=== PATIENT | female | born 1955 | race Caucasian/White ===

== ENCOUNTER 2018-11-21 14:52 | Outpatient (CLI) | payer OTHER, SELFPAY ==
[2018-11-21 15:34] LABS: Bilirubin Negative (Negative); Blood Negative (Negative); Clarity Clear; Glucose Negative (Negative); Ketones Negative (Negative); Leukocyte Esterase Trace (Negative); Nitrite Negative (Negative); Urobilinogen 0.2 EU/dL (Up TO 0.2); pH 6.5 (5-8)
[2018-11-21 15:59] LABS: Anion Gap 10.8 mmol/L (3-11); BUN 12 mg/dL (7-18); CO2 27.2 mmol/L (21.0-32.0); CREATININE 0.79 mg/dL (0.55-1.02); Calcium 8.9 mg/dL (8.5-10.1); Chloride 103 mmol/L (98-107); Glucose 114 mg/dL (70-100); Potassium 3.8 mmol/L (3.5-5.1); Sodium 141 mmol/L (136-145); TSH 0.96 uIU/mL (0.358-3.74)
[2018-11-21 16:02] LABS: Epithelial Cells Rare HPF (Negative); RBC Negative (0-2)
[2018-11-21 16:03] LABS: Bacteria Few HPF (Negative); C & S Indicated? Yes; Casts Negative LPF (Negative); Crystals Negative HPF (Negative); Mucus Negative (Negative); Other Cells Few Renal (Negative)
== END 2018-11-21 15:12 ==
PROVIDERS: PCP Family Medicine; Visit Provider Family Medicine
DX: M54.6 Pain in thoracic spine (principal); E03.9 Hypothyroidism, unspecified
CPT/HCPCS: 36415; 80048; 81003; 81015; 84443; 87086

== ENCOUNTER 2019-02-08 07:37 | Outpatient (CLI) | payer OTHER, SELFPAY ==
[2019-02-08 08:16] LABS: Abs Immature Grans 0.01 k/cumm (0.0-0.09); Absolute Basophil Count 0.03 k/cumm (0.0-0.2); Absolute Eosinophil Count 0.11 k/cumm (0.0-0.7); Absolute Lymphocyte Count 2.02 k/cumm (1.2-3.4); Absolute Monocyte Count 0.49 k/cumm (0.11-0.7); Absolute Neutrophil Count 2.23 k/cumm (1.2-6.7); Basophils % 0.6; Eosinophils % 2.2; HCT 41.1 % (36.0-46.0); HGB 13.6 g/dL (12.0-15.5); Immature Grans % 0.2; Lymphocytes % 41.3; Mean Corp. HGB Concentration 33.1 g/dL (32.0-36.0); Mean Corpuscular Hemoglobin 30.5 pg (27.0-33.0); Mean Corpuscular Volume 92.2 fL (80-95); Mean Platelet Volume 9.5 fL (8.0-11.0); Neutrophils % 45.7; Platelet Count 260 x1000/uL (130-400); RBC 4.46 m/cumm (4.00-5.20); White Blood Cell Count 4.89 k/cumm (4.4-10.8)
[2019-02-08 08:42] LABS: Cholesterol 173 mg/dL (50-200); HDL Cholesterol 53 mg/dL (40-60); LDL CHOLESTEROL 102 mg/dL (<100); Triglyceride 91 mg/dL (30-150)
[2019-02-08 09:11] LABS: Hemoglobin A1C 5.9 % (4.5-6.2)
== END 2019-02-08 07:57 ==
PROVIDERS: PCP Family Medicine; Visit Provider Family Medicine
DX: Z00.00 Encounter for general adult medical examination without abnormal findings (principal); R03.0 Elevated blood-pressure reading, without diagnosis of hypertension; E03.9 Hypothyroidism, unspecified; R10.10 Upper abdominal pain, unspecified; R63.5 Abnormal weight gain
CPT/HCPCS: 36415; 80061; 83721; 83036; 85025

== ENCOUNTER 2019-03-30 12:47 | Emergency (ER) | payer OTHER, SELFPAY ==
[2019-03-30 12:51] VITALS: BP 186/102; PULSE 128; RESP 20; TEMP 37.5; O2SAT 97
--- NOTE | 2019-03-30 13:20 | DI.CT_ITS ---
SYMPTOMS/DIAGNOSIS: HEADACHE, RIGHT FACIAL NUMBNESS, ? ACUTE CEREBROVASCULAR ACCIDENT CRANIAL CT: A noncontrast cranial CT was performed. The ventricular system is normal in appearance. There is no evidence of an intracranial mass lesion. There is no evidence of a subdural or epidural hematoma. No focal areas of decreased attenuation are seen. CONCLUSION: Normal noncontrast cranial CT.
--- NOTE | 2019-03-30 13:20 | DI.RAD_ITS ---
SYMPTOMS/DIAGNOSIS: RIGHT-SIDED FACE/NECK NUMBNESS, ? ACUTE DISEASE PA AND LATERAL CHEST: The heart is normal in size. The lungs are clear. The mediastinal structures and pleura appear intact. CONCLUSION: Normal chest.
--- NOTE | 2019-03-30 13:24 | W.ED.GENAD ---
Discharge Plan Disposition Patient Disposition: HOME Condition: Improving Discharge Details Chief Complaint: FacialProb Clinical Impression: Right facial numbness, Headache, Clogged ear, Hypertension Primary Care Provider: Shubham Adhikari Jr ED Provider: Sheeba Lagos Home Meds and New Rx's Prescriptions: New prednisone 20 mg tablet See Rx Instructions .ROUTE .COMPLEX Qty: 12 RF: 0 Continued levothyroxine [Synthroid] 125 MCG tablet 125 mcg PO DAILY RF: 0 Discharge Instructions Instructions: Paresthesia (ED), Hypertension (ED), General Headache (ED) Additional Instructions: Take the steroids until finished. Call your primary care doctor tomorrow morning to schedule a follow up appointment for re-evaluation and for referral to neurology for evaluation. Return immediately to the emergency department with any worsening or new concerning symptoms. Referrals: Adri Rivera MD [ [facility] STAFF PHYSICIAN] - Discharge Data Discharge Date/Time-TO BE ENTERED AT DEPARTURE: 03/30/19 16:39 Discharge Physician: Sheeba Lagos Medical Decision Making 64-year-old female with a history of hypothyroidism who presents the ED with complaint of right-sided facial and neck numbness, clogged ears and frontal headache for the past 2 weeks. Also admitted to right eye blurry vision and right arm weakness but this was only endorsed once asked. Visual acuity within normal limits. No focal deficits. Left ear dull to inspection but no erythema. Differential diagnosis includes acute CVA, dissection, mass, sinusitis, shingles, complex migraine. Will place an IV, bolus IV fluids, labs, CT head, chest x-ray. EKG notes a rate of 84 and sinus, no acute ST findings. 1400 --labs and imaging reviewed and unremarkable. Normal white blood cell count, electrolytes, troponin, TSH. CT head and chest x-ray negative. 1425 -- d/w Dr. Rivera -recommend CTA head and neck to evaluate for dissection. If negative, presentation could possibly be migrainous in the setting of hypertension. Will follow up with patient in the office as an outpatient. BP improved -now 138/72. Visual acuity b/l OD/OS/OU 20/20. 1630 --CTA negative. Patient states she feels significantly better and she is requesting to go home. She describes at this time that she has not been having external facial numbness but that she feels that it is numb deep within her face. Discussed that additional work-up can include MRI brain and/or LP. Patient states she would rather not have an LP at this time. As she has no focal deficits and her symptoms have been present for several weeks, I do not see an indication for urgent MRI brain and she can follow-up for this as an outpatient. Dose of prednisone given here as well as prescription. She is instructed to call her primary care doctor and neurology tomorrow to schedule a follow-up appointment for reevaluation. Patient is instructed to return here immediately with any worsening or concerning symptoms. Medical Records Medical records reviewed: Yes I reviewed the patient's medical records. Imaging Data Radiologic Study: Radiologist's impression: PA AND LATERAL CHEST: The heart is normal in size. The lungs are clear. The mediastinal structures and pleura appear intact. CONCLUSION: Normal chest. Radiologic Study #2: Radiologist's impression: CRANIAL CT: A noncontrast cranial CT was performed. The ventricular system is normal in appearance. There is no evidence of an intracranial mass lesion. There is no evidence of a subdural or epidural hematoma. No focal areas of decreased attenuation are seen. CONCLUSION: Normal noncontrast cranial CT. Radiologic Study #3: Radiologist's impression: CT ANGIOGRAPHY, CERVICOCRANIAL: CT angiography was performed with multi slice acquisition and multi planar and 3D reconstruction. CT angiography of the neck and head was performed with bolus infusion of 100 cc of Omnipaque 350. The visualized aortic arch and great vessels are unremarkable. There is normal appearance of the common carotid arteries bilaterally with no evidence of stenosis or aneurysm. Internal and external carotid arteries appear normal bilaterally with no evidence of stenosis or aneurysm formation. No cervical mass or adenopathy is seen. Tracheal laryngeal structures appear intact. Intracranial internal carotid arteries appear normal bilaterally with no evidence of aneurysm or stenosis. Anterior cerebral, middle cerebral and posterior cerebral arteries and major branches are unremarkable bilaterally with no evidence of aneurysm or stenosis. CONCLUSION: Negative CT angiography neck and head. Lab Data Laboratory Tests Range/Units 03/30/19 03/30/19 03/30/19 13:36 13:36 13:36 WBC (4.4-10.8) k/cumm 7.04 RBC (4.00-5.20) m/cumm 4.73 Hgb (12.0-15.5) g/dL 14.3 Hct (36.0-46.0) % 42.9 MCV (80-95) fL 90.7 MCH (27.0-33.0) pg 30.2 MCHC (32.0-36.0) g/dL 33.3 RDW (11.7-14.6) % 12.7 Plt Count (130-400) x1000/uL 295 MPV (8.0-11.0) fL 9.4 Immature Gran % 0.1 Neutrophils % 52.1 Lymphocytes % 38.5 Monocytes % 7.1 Eosinophils % 1.6 Basophils % 0.6 Absolute Neutrophils (1.2-6.7) k/cumm 3.67 Absolute Lymphocytes (1.2-3.4) k/cumm 2.71 Absolute Monocytes (0.11-0.7) k/cumm 0.50 Absolute Eosinophils (0.0-0.7) k/cumm 0.11 Absolute Basophils (0.0-0.2) k/cumm 0.04 ESR (0-30) MM/HR PT (9.3-11.0) sec 9.7 INR (0.9-1.1) 1.0 APTT (21.0-31.4) sec 25.5 Sodium (136-145) mmol/L 138 Potassium (3.5-5.1) mmol/L 3.6 Chloride (98-107) mmol/L 101 Carbon Dioxide (21.0-32.0) mmol/L 24.6 Anion Gap (3-11) mmol/L 12.4 H BUN (7-18) mg/dL 11 Creatinine (0.55-1.02) mg/dL 0.80 Estimated GFR/1.73 m2 (mL/min/1.73m2) >= 60.00 Glucose (70-100) mg/dL 139 H Calcium (8.5-10.1) mg/dL 9.0 Magnesium (1.8-2.4) mg/dL 2.1 Total Bilirubin (0.2-1.0) mg/dL 0.4 AST (15-37) U/L 19 ALT (12-78) U/L 29 Alkaline Phosphatase (46-116) U/L 80 Troponin I (0.00-0.06) ng/mL 0.02 Total Protein (6.4-8.2) g/dL 8.6 H Albumin (3.4-5.0) g/dL 3.8 TSH (0.358-3.74) uIU/mL Range/Units 03/30/19 03/30/19 13:36 13:36 WBC (4.4-10.8) k/cumm RBC (4.00-5.20) m/cumm Hgb (12.0-15.5) g/dL Hct (36.0-46.0) % MCV (80-95) fL MCH (27.0-33.0) pg MCHC (32.0-36.0) g/dL RDW (11.7-14.6) % Plt Count (130-400) x1000/uL MPV (8.0-11.0) fL Immature Gran % Neutrophils % Lymphocytes % Monocytes % Eosinophils % Basophils % Absolute Neutrophils (1.2-6.7) k/cumm Absolute Lymphocytes (1.2-3.4) k/cumm Absolute Monocytes (0.11-0.7) k/cumm Absolute Eosinophils (0.0-0.7) k/cumm Absolute Basophils (0.0-0.2) k/cumm ESR (0-30) MM/HR 28 PT (9.3-11.0) sec INR (0.9-1.1) APTT (21.0-31.4) sec Sodium (136-145) mmol/L Potassium (3.5-5.1) mmol/L Chloride (98-107) mmol/L Carbon Dioxide (21.0-32.0) mmol/L Anion Gap (3-11) mmol/L BUN (7-18) mg/dL Creatinine (0.55-1.02) mg/dL Estimated GFR/1.73 m2 (mL/min/1.73m2) Glucose (70-100) mg/dL Calcium (8.5-10.1) mg/dL Magnesium (1.8-2.4) mg/dL Total Bilirubin (0.2-1.0) mg/dL AST (15-37) U/L ALT (12-78) U/L Alkaline Phosphatase (46-116) U/L Troponin I (0.00-0.06) ng/mL Total Protein (6.4-8.2) g/dL Albumin (3.4-5.0) g/dL TSH (0.358-3.74) uIU/mL 0.56 ECG Data Attestation: I personally reviewed and interpreted this ECG (s) as follows: Interpretation: Rate of 84, sinus, no acute ST elevation or depression. QTc 447. QRS 92. HPI General Mode of arrival: ambulatory. Date/Time Provider Initiated Documentation: 03/30/19 12:48. Limitations to Documentation: no limitations. Information obtained by: patient. HPI Narrative: Patient is a 62-year-old female with a history of hypothyroidism who presents with right-sided facial numbness, headache and sensation of ears being blocked and clogged for the past 3 weeks. Patient states all of her symptoms started with diarrhea for a few days 3 weeks ago which then resolved. She states she then developed what seemed like a sinus infection with ears clogged and congestion. She was taking Sudafed once a day for 5 days and then followed up with urgent care who noted that she had elevated blood pressure and fluid behind her TMs and advised her to stop the Sudafed and started her on Flonase and Claritin for possible allergies. She states since then she has had sensation of clogged ears, right-sided facial numbness for the past 2 weeks with that then progressed into the right side of her neck for the past few days. She also admits to frontal headache for the past 2 weeks which she has been taking extra strength Tylenol for with some relief. Patient denies any drooping eyelid or facial droop. She denies any fever, dizziness, vomiting or extremity numbness. She denies any chest pain or shortness of breath. She denies any recent travel, recent surgery, recent tick bite or injury. Related Data Home Medications Medication Instructions Recorded Confirmed levothyroxine [Synthroid] 125 mcg PO DAILY 03/14/14 03/30/19 prednisone See Rx Instructions .ROUTE 03/30/19 .COMPLEX #12 tab Previous Rx's Medication Instructions Recorded prednisone See Rx Instructions .ROUTE 03/30/19 .COMPLEX #12 tab Allergies Allergy/AdvReac Type Severity Reaction Status Date / Time ciprofloxacin HCl AdvReac Severe gi upset Unverified 03/30/19 12:55 [From Cipro] General Stated Complaint: FacialProb NELLY: 3 Review of Systems Review of Systems All systems reviewed & are unremarkable except as noted in HPI and below Constitutional Reports as per HPI, Denies chills and Denies fever(s) Eyes Denies blurry vision ENT Denies dizziness, Denies sore throat and Denies throat swelling Cardiovascular Denies chest pain and Denies dyspnea Respiratory Denies cough and Denies dyspnea Gastrointestinal Denies abdominal pain, Denies diarrhea and Denies vomiting Genitourinary Denies hematuria and Denies dysuria Musculoskeletal Denies back pain and Denies numbness Integumentary/Breasts Denies lesions and Denies rash Neurologic Denies dizziness, Denies focal weakness and Denies numbness Allergic/Immunologic Denies throat swelling [facility] Medical History Hypertension (Chronic) Hypothyroidism (Chronic) Surgical History History of bilateral tubal ligation (Acute) H/O section (Chronic) History of thyroidectomy (Chronic) Social History Smoking/Tobacco Use Status: Never Alcohol Intake: current Alcohol Intake frequency: holidays/special occasions only Drug use: Never Substance use type: does not use Do you feel safe at home: Yes Do you feel safe in your relationship?: Yes Exam Const General: cooperative and anxious (mild) Orientation: alert, awake and oriented x3 HENMT Head: normal to inspection Ears: hearing grossly normal bilaterally, external ears normal and TM's normal bilaterally General nose exam: external nose normal Face and sinus: normal facial exam and sinuses nontender Mouth: oral mucosae normal Teeth and gingiva: dentition normal Throat: posterior oropharynx normal Eyes General: appearance normal, both eyes and all related structures Eyelids: eyelids normal Pupils: PERRL EOM: EOM intact bilaterally Neck Neck: normal visual inspection Lymphatic: no lymphadenopathy noted Chest Chest: normal inspection of the chest Resp Effort & Inspection: normal respiratory effort and able to speak in complete sentences Auscultation: clear to auscultation bilaterally Cardio Rate: regular rate Rhythm: regular rhythm GI Inspection: normal to inspection Palpation: soft, not firm, no guarding, no hepatosplenomegaly, no masses and nontender Auscultation: normal bowel sounds Back/Spine/Pelvis Back: no CVA tenderness Skin General skin exam: no rashes or lesions noted Neuro General: alert, awake, oriented x3, gait normal, moves all extremities, no meningeal signs and no focal motor deficits Cranial Nerves: CN's II-XI intact bilaterally Cognition: normal cognition Speech: speech normal Gait: normal gait Motor: muscle tone normal throughout, strength 5/5 throughout, no pronator drift and other (normal finger to nose test b/l) Sensory Exam: no sensory deficits noted Extrem General: normal to inspection, full ROM and normal capillary refill Psych Appearance: grossly normal Mental Status: mental status grossly normal Speech and Movement: speech and movement normal Affect: normal affect Thought Process: normal Course Vital Signs Temperature 99.5 F 03/30/19 12:51 Pulse 128 H 03/30/19 12:51 Respiratory Rate 20 03/30/19 12:51 Blood Pressure 186/102 H 03/30/19 12:51 Pulse Oximetry 97 03/30/19 12:51 Temperature 99.5 F 03/30/19 12:51 Temperature Source Temporal Artery Scan 03/30/19 12:51 Pulse 128 H 03/30/19 12:51 Respiratory Rate 20 03/30/19 12:51 Respiratory Effort Non-Labored 03/30/19 12:51 Blood Pressure 186/102 H 03/30/19 12:51 Pulse Oximetry 97 03/30/19 12:51 Oxygen Delivery Method Room Air 03/30/19 12:51 Oxygen Flow Rate 0 03/30/19 12:51 Pain Level 0 03/30/19 13:01
[2019-03-30 13:44] LABS: Abs Immature Grans 0.01 k/cumm (0.0-0.09); Absolute Basophil Count 0.04 k/cumm (0.0-0.2); Absolute Eosinophil Count 0.11 k/cumm (0.0-0.7); Absolute Lymphocyte Count 2.71 k/cumm (1.2-3.4); Absolute Neutrophil Count 3.67 k/cumm (1.2-6.7); Basophils % 0.6; Eosinophils % 1.6; HCT 42.9 % (36.0-46.0); HGB 14.3 g/dL (12.0-15.5); Immature Grans % 0.1; Lymphocytes % 38.5; Mean Corp. HGB Concentration 33.3 g/dL (32.0-36.0); Mean Corpuscular Hemoglobin 30.2 pg (27.0-33.0); Mean Corpuscular Volume 90.7 fL (80-95); Mean Platelet Volume 9.4 fL (8.0-11.0); Monocytes % 7.1; Neutrophils % 52.1; Platelet Count 295 x1000/uL (130-400); RBC 4.73 m/cumm (4.00-5.20); RBC Distribution Width 12.7 % (11.7-14.6); White Blood Cell Count 7.04 k/cumm (4.4-10.8)
[2019-03-30 14:00] LABS: ALT 29 U/L (12-78); AST 19 U/L (15-37); Albumin 3.8 g/dL (3.4-5.0); Alkaline Phosphatase 80 U/L (46-116); Anion Gap 12.4 mmol/L (3-11); BUN 11 mg/dL (7-18); Bilirubin, Total 0.4 mg/dL (0.2-1.0); CO2 24.6 mmol/L (21.0-32.0); Chloride 101 mmol/L (98-107); Glucose 139 mg/dL (70-100); Magnesium 2.1 mg/dL (1.8-2.4); Potassium 3.6 mmol/L (3.5-5.1); Sodium 138 mmol/L (136-145); Total Protein 8.6 g/dL (6.4-8.2); Troponin I 0.02 ng/mL (0.00-0.06)
[2019-03-30 14:08] LABS: TSH (W/Ref FT4) 0.56 uIU/mL (0.358-3.74)
[2019-03-30 14:15] LABS: PTT Activated 25.5 sec (21.0-31.4); Prothrombin Time 9.7 sec (9.3-11.0)
--- NOTE | 2019-03-30 14:25 | DI.CT_ITS ---
SYMPTOMS/DIAGNOSIS: RIGHT-SIDED FACIAL/NECK NUMBNESS, ? CEREBROVASCULAR ACCIDENT/DISSECTION CT ANGIOGRAPHY, CERVICOCRANIAL: CT angiography was performed with multi slice acquisition and multi planar and 3D reconstruction. CT angiography of the neck and head was performed with bolus infusion of 100 cc of Omnipaque 350. The visualized aortic arch and great vessels are unremarkable. There is normal appearance of the common carotid arteries bilaterally with no evidence of stenosis or aneurysm. Internal and external carotid arteries appear normal bilaterally with no evidence of stenosis or aneurysm formation. No cervical mass or adenopathy is seen. Tracheal laryngeal structures appear intact. Intracranial internal carotid arteries appear normal bilaterally with no evidence of aneurysm or stenosis. Anterior cerebral, middle cerebral and posterior cerebral arteries and major branches are unremarkable bilaterally with no evidence of aneurysm or stenosis. CONCLUSION: Negative CT angiography neck and head.
[2019-03-30] MEDS: Omnipaque 350 MG/ML 100 ML BTL 85 ML IV (15:23)
[2019-03-30 15:27] LABS: ESR 28 MM/HR (0-30)
[2019-03-30] MEDS: predniSONE 20 MG TAB 60 MG PO (16:34)
[2019-03-30 16:38] VITALS: BP 145/84; PULSE 83; RESP 16; O2SAT 98
== END 2019-03-30 16:39 | disposition home or self-care (01) ==
PROVIDERS: Emergency Provider Physician Assistant; PCP Family Medicine
DX: R20.2 Paresthesia of skin (principal); R51 Headache; R53.1 Weakness; I10 Essential (primary) hypertension
CPT/HCPCS: 36415; 70496; 70498; 80053; 85652; 93005; 99285; 70450; 71046; 83735; 84443; 84484; 85025; 85610; 85730; 93010; J3490; J7512